=== PATIENT | female | born 1995 | race Caucasian/White ===

== ENCOUNTER 2017-12-10 05:30 | Day surgery (SDC) | payer MEDICAID ==
[2017-12-09 12:30] LABS: BASOPHILS 0.3 % (0-2); EOSINOPHILS 2.2 % (0-7); HEMATOCRIT 39.5 % (36.0-48.0); HEMOGLOBIN 13.6 g/dL (12-16); LYMPHOCYTES 36.6 % (15-50); MCH 31.7 pg (26.0-34.0); MCHC 34.4 g/dL (31.0-37.0); MCV 92.1 fL (80.0-100.0); MEAN PLATELET VOLUME 8.8 fL (7.4-10.4); MONOCYTES 5.9 % (2-11); RBC 4.29 10x6/uL (4.00-5.40); RDW 12.3 % (11.5-14.5); WBC 5.9 10x3/uL (4.8-10.8)
[2017-12-09 12:31] LABS: PLATELET COUNT 278 10x3/uL (130-400)
[~2017-12-10] VITALS: Ht 157.5 cm; Wt 43.5 kg
--- NOTE | ~2017-12-10 | OP ---
PATIENT NAME: NATALIE WHITEHEAD MEDICAL RECORD: [id number] :96 LOCATION:D.OPS ADMISSION DATE: SURGEON: JASVIR HEWITT MD DATE OF OPERATION: 12/10/2017 PREOPERATIVE DIAGNOSES: 1. Retracted IUD strings. 2. The patient desires IUD removal. POSTOPERATIVE DIAGNOSES: 1. Retracted IUD strings. 2. The patient desires IUD removal. PROCEDURE: Hysteroscopy and removal of IUD. SURGEON: Jasvir Hewitt MD ESTIMATED BLOOD LOSS: Minimal. INTRAVENOUS FLUIDS: Per anesthesia records. HYSTEROSCOPIC FLUID LOSS: Less than 100 cc of 0.9 normal saline. SPECIMENS: IUD. FINDINGS: 1. Grossly normal-appearing external genitalia. 2. Grossly normal-appearing cervix. 3. IUD within the fundus of grossly normal-appearing endometrial cavity. COMPLICATIONS: None apparent. ESTIMATED BLOOD LOSS: Minimal. PROCEDURE IN DETAIL: The patient was taken to the operating room where general anesthesia was achieved without difficulty. The patient was then prepped and draped in normal sterile fashion in the dorsal lithotomy position in the [facility]. After prepping and draping, the bladder was drained of approximately 50 cc of clear yellow urine. A Graves speculum was then placed in the vagina and the cervix was grasped on its anterior lip with a single tooth tenaculum. The 5 mm hysteroscope was then introduced into the cervix without resistance. It was very slowly advanced under direct visualization until the IUD was noted. The hysteroscopic grasper was then used to grasp the retrieval string of the IUD and the IUD and hysteroscope were removed. No bleeding was noted from the os at that time. The single-tooth tenaculum was then removed with good hemostasis noted from the tenaculum sites. The patient tolerated the procedure well and was transported to postanesthesia recovery stable without incident. TRANSINT:[id number] Voice Confirmation ID: [id number] DOCUMENT ID: [id number] OPERATIVE REPORT [id number] NATALIE WHITEHEAD JASVIR HEWITT MD at 1034 CC: [id number] DICTATION DATE: 12/18/17 0656 FISH CONSERVATIONIST: 12/18/17 0851 [facility] 12/10/17 [place] [address]
[~2017-12-10 05:30] MED LIST: IBUPROFEN600 MG PO; PERCOCET 5-3251 TAB PO
[2017-12-10 06:20] VITALS: BP 99/55; BMI 17.6
[2017-12-10 06:20] LABS: HCG URINE NEGATIVE (NEGATIVE)
[2017-12-10 06:38] VITALS: Ht 157.5 cm; Wt 43.5 kg
== END 2017-12-10 09:25 | disposition home or self-care (01) ==
LOC: D.OPS 05:30 → D.PAN 07:30 → D.OPS 09:25 → D.PAN 12:00 → D.OPS 12:00
PROVIDERS: Obstetrics & Gynecology
DX: T83.32XA Displacement of intrauterine contraceptive device, initial encounter (principal)

== ENCOUNTER → 2019-02-07 22:02 | Outpatient (CLI) | payer MEDICAID ==
[2017-12-10 06:38] VITALS: BMI 17.6
[~2019-02-07 22:02] MED LIST changes: +HYDROCODON-ACE1 EAC7 PO
== END | disposition home or self-care (01) ==
LOC: D.LDO 22:02
PROVIDERS: ATTEND Obstetrics & Gynecology
DX: O26.893 Other specified pregnancy related conditions, third trimester (principal); Z3A.38 38 weeks gestation of pregnancy

== ENCOUNTER 2019-02-09 03:20 | Inpatient (IN) | payer MEDICAID ==
[~2019-02-09] VITALS: Ht 157.5 cm; Wt 59.1 kg
[~2019-02-09 03:20] MED LIST changes: -HYDROCODON-ACE1 EAC7 PO
[2019-02-09 04:58] VITALS: BP 103/60; Ht 157.5 cm; Wt 59.1 kg
[2019-02-09 05:16] LABS: HEMATOCRIT 38.9 % (36.0-48.0); HEMOGLOBIN 13.7 g/dL (12-16); MCH 32.6 pg (26.0-34.0); MCHC 35.2 g/dL (31.0-37.0); MCV 92.6 fL (80.0-100.0); MEAN PLATELET VOLUME 9.4 fL (7.4-10.4); RBC 4.2 10x6/uL (4.00-5.40); RDW 12.6 % (11.5-14.5); WBC 7.1 10x3/uL (4.8-10.8)
[2019-02-09 19:20] VITALS: BP 99/63
--- NOTE | 2019-02-09 19:20 | NUR ---
PT. REPORTS THAT SHE NEEDS TO VOID. GOOD ROM OF LOWER EXTREMITIES AND PT. DID NOT HAVE EPIDURAL FOR DELIVERY. VITAL SIGNS OBTAINED. LOCHIA RUBRA SCANT TO MOD ON CURRENT PAD. SALINE LOCK NOTED IN RT. WRIST WITHOUT REDNESS NOR EDEMA. PT. UP TO VOID. GAIT STEADY. PT. STATES SHE FEELS HER BLADDER IS EMPTIED. SELF FOX CARE TAUGHT TO PT. PT. GAVE RETURN DEMONSTRATION ON USE OF FOX BOTTLE. GOWN CHANGED AND FOX PADS AND PANTIES APPLIED. PT. CHEERFUL. INFANT IN ROOM IN OPEN CRIB. DISCUSSED POC WITH PT. AND FOB.
--- NOTE | 2019-02-09 19:40 | NUR ---
TRANSFERRED TO [facility] VIA WHEELCHAIR. PT. AWAKE AND ORIENTED. TO ROOM IN OPEN CRIB. PT. ORIENTED TO ROOM , CALL SYSTEM, AND TEMP. CONTROL . PT. DESIRES ROOM WARMER AND TEMP. INCREASED REQUESTED. FUNDUS FIRM U/1 AND MIDLINE. LOCHIA RUBRA SCANT AT THIS TIME. SIDE RAILS UP X2. INQUIRED IF PT. DESIRED SOMETHING TO EAT AND CHOICES GIVEN TO PT. FOB ASSISTED TO PULL OUT SOFA SINCE HE IS SPENDING THE NIGHT.
--- NOTE | 2019-02-09 19:50 | NUR ---
SANDWICH TRAY, COLA DRINK, CHIPS AND COLA SERVED. PT. CHEERFUL.
--- NOTE | 2019-02-09 20:30 | NUR ---
MECHE BROUGHT FOOD FROM OUTSIDE.
--- NOTE | 2019-02-09 20:54 | NUR ---
FOB AND PT. LYING IN BED . DENIES ANY PAIN OR NEEDS AT THIS TIME. STATES SHE HAS VOIDED AGAIN. SIDE RAILS UP X2 AND CALL LIGHT WITHIN REACH.
--- NOTE | 2019-02-09 21:55 | NUR ---
LYING ON BACK WITH HOB AT 45 DEGREES HOLDING . FOB SITTING BESIDE BED AND PATTING ON BACK GENTLY. ICE WATER PROVIDED. DENIES ANY PAIN OR NEEDS.
--- NOTE | 2019-02-09 22:03 | NUR ---
BEDSIDE REPORT REC'D FROM Allyn PERRIN RN. PT REC'S IN HIGH FOWLERS POSITION WITH INFANT ARMS BONDING. DENIES NEEDS AND PAIN AT THIS TIME. BED IN LOW POSITION WITH UPPER SIDE RAILSL RAISED X2. CALL LIGHT AND PHONE WITHIN REACH. WILL CONTINUE TO MONITOR.
--- NOTE | 2019-02-09 22:12 | NUR ---
C/O ABD CRAMPING 5-01/02. NORCO AND MOTRIN GIVEN PER ORDER AND PT REQUEST. RESTING IN OPEN CRIB AT BEDSIDE. PT REPORTS THAT CRAMPING STARTED FOLLOWING LAYING INFANT DONE. EDUCATED ON MEDS, VERBALIZES UNDERSTANDING AND DENIES QUESTIONS. REINFORCED TEACHING TO CALL FOR ASSISTANCE IF FEELING DIZZY OR DROWSY FOLLOWING NORCO AND CALLING FOR ASSISTANCE WITH INFANT, VERBALIZES UNDERSTANDING AND DENIES QUESTIONS/NEEDS. BED IN LOW POSITION WITH UPPER SIDE RAILS RAISED X2. CALL LIGHT AND PHONE WITHIN REACH. SIGNIFICANT OTHER AT BEDSIDE, SUPPORTIVE AND ATTENTIVE TO PT AND INFANT NEEDS.
--- NOTE | 2019-02-09 22:59 | NUR ---
PAIN REASSESSMENT COMPLETED. 09/04. DENIES NEEDS AT THIS TIME. CONVERSING WITH VISITORS. BED IN LOW POSITION WITH UPPER SIDE RAILS RAISED X2. WILL CONTINUE TO MONITOR AND ASSIST PRN.
--- NOTE | 2019-02-10 00:29 | NUR ---
ROUNDS MADE. PT RESTING WITH EYES CLOSED IN SEMI FOWLERS POSITION, AWAKENS WHEN DOOR OPENS. FOB ATTEMPTING TO BOTTLE FEED , BUT EYES NOTED TO BE TO CLOSED. PT REPORTS THAT SHE IS "VERY SLEEPY SINCE TAKING THAT PAIN MEDICINE." TO NBN PER PT REQUEST. ICE AND ICE WATER PROVIDED. DENIES ADDITIONAL NEEDS. BED IN LOW POSITION WITH UPPER SIDE RAILS RAISED X2. CALL LIGHT AND PHONE WITHIN REACH. WILL CONTINUE TO MONITOR AND ASSIST PRN.
--- NOTE | 2019-02-10 02:07 | NUR ---
ROUNDS MAY, PT RESTING WITH EYES CLOSED LAYING ON LEFT SIDE. RESPIRATIONS REGULAR AND UNLABORED, NO S/S OF DISTRESS NOTED. SIGNIFICANT OTHER RESTING ON COUCH AT BEDSIDE. IN NBN. BED IN LOW POSITION WITH UPPER SIDE RAILS RAISED X2. CALL LIGHT AND PHONE WITHIN REACH. WILL CONTINUE TO MONITOR AND ASSIST PRN.
--- NOTE | 2019-02-10 04:07 | NUR ---
ROUNDS MADE. ICE WATER PROVIDED. REQUESTS INFANT BE BROUGHT TO ROOM FROM [facility]. BROUGHT TO ROOM PER REQUEST, ID BANDS MATCHED AND PLACED IN FOB ARMS. DENIES PAIN AND NEEDS AT THIS TIME. BED IN LOW POSITION WITH UPPER SIDE RAILS RAISED X2. CALL LIGHT AND PHONE WITHIN REACH. WILL CONTINUE TO MONITOR AND ASSIST PRN.
[2019-02-10 06:09] LABS: RAPID PLASMA REAGIN Non Reactive (Non Reactive)
--- NOTE | 2019-02-10 06:24 | NUR ---
ROUNDS MADE. PT CHANGING INFANTS DIAPER. DENIES PAIN AND NEEDS AT THIS TIME. BED IN LOW POSITION WITH UPPER SIDE RAILS RAISED X2. CALL LIGHT AND PHONE WITHIN REACH. WILL CONTINUE TO MONITOR AND ASSIST PRN. SIGNIFICANT OTHER REMAINS AT BEDSIDE, SUPPORTIVE AND ATTENTIVE TO PT AND HER NEEDS.
[2019-02-10 06:50] LABS: BASOPHILS 0.1 % (0-2); EOSINOPHILS 0.3 % (0-7); HEMATOCRIT 36.7 % (36.0-48.0); HEMOGLOBIN 12.6 g/dL (12-16); IMMATURE GRANULOCYTES 0.4 % (0-5); LYMPHOCYTES 16.3 % (15-50); MCH 32.1 pg (26.0-34.0); MCHC 34.3 g/dL (31.0-37.0); MCV 93.6 fL (80.0-100.0); MEAN PLATELET VOLUME 9.3 fL (7.4-10.4); MONOCYTES 6.4 % (2-11); NEUTROPHILS 76.5 % (40-80); PLATELET COUNT 204 10x3/uL (130-400); RBC 3.92 10x6/uL (4.00-5.40); RDW 12.6 % (11.5-14.5)
[2019-02-10 07:36] LABS: WBC 12.9 10x3/uL (4.8-10.8)
--- NOTE | 2019-02-10 08:15 | NUR ---
ASSESSMENT COMPLETED CHARTED ON EMAR. PT RATES PAIN AT 0/10, FUNDUS FIRM AT U/U AND SHE DENIES HEAVY BLEEDING, NO CLOTS WITH VOIDS. IN CRIB AT BEDSIDE. PT REQUEST BOTTLE FOR INFANT BUT WHEN QUESTIONED ABOUT LAST FEEDING STATES WAS AT 0630 THIS AM, EXPLAINED THAT WAS TO EARLY TO FEED BUT WOULD CONFIRM THAT WITH NURSERY NURSE AND SEND HER IN TO ANSWER ANY FURTHER QUESTIONS ABOUT FEEDING. SIDE RAILS UP X 2 WITH CALL LIGHT IN REACH.
--- NOTE | 2019-02-10 08:21 | NUR ---
INFANT SHIRT AND BLANKETS X 2 TAKEN PER PT REQUEST.
--- NOTE | 2019-02-10 10:30 | NUR ---
PT DENIES PAIN OR DISCOMFORT. INFANT IN CRIB AT BEDSIDE AND FAMILY/FRIENDS PRESENT. NO NEEDS AT THIS TIME.
--- NOTE | 2019-02-10 12:15 | NUR ---
CALLED TO ROOM WITH REQUEST FOR SALINE LOCK TO BE REMOVED. PT C/O "ITCHING" AT SITE. NO REDNESS NOTED. SALINE LOCK REMOVED INTACT FROM LEFT WRIST. TOWELS AND SHOWER ITEMS PLACED IN BATHROOM PT REQUESTED, WILL LET NURSE KNOW WHEN SHE SHOWERS SO THAT BED LINENS CAN BE CHANGED.
--- NOTE | 2019-02-10 12:45 | NUR ---
PT PROVIDED WITH ROOMIN POLICY AND INFO SHEET TO BE ABLE TO CHOICE IF SHE WISHES TO STAY IN PATIENT OR ROOM IN UNTIL INFANT DISCHARGE.
--- NOTE | 2019-02-10 14:15 | NUR ---
PT UP TO SHOWER, FOB AT BEDSIDE HOLDING . BED LINENS CHANGED WHILE PT SHOWERS. WILL CALL FOR NURSE IF ANY ASSISTANCE IS NEEDED.
--- NOTE | 2019-02-10 15:32 | NUR ---
CALLED TO ROOM, PT DECLINES ROOMING IN, STATES "HE SHOULD BE GOING HOME TOMORROW SO I WILL WAIT ALSO" REASSURED THAT WAS NO A PROBLEM. DENIES NEEDS AT THIS TIME AND CONTINUE TO RATE PAIN AT 0/10.
--- NOTE | 2019-02-10 17:27 | NUR ---
CALLED TO ROOM. RATES PAIN AT 4/10, MOTRIN GIVEN PER REQUEST SCANNED TO EMAR. LARGE ICE WATER ALSO PROVIDED. INFANT IN CRIB AT BEDSIDE, FAMILY MEMBERS ALSO PRESENT.
--- NOTE | 2019-02-10 18:17 | NUR ---
pain reassessment, pt rates at 0/10 and denies needs.
--- NOTE | 2019-02-10 19:05 | NUR ---
UNABLE TO GET TO COMPUTER DURING BEDSIDE REPORT DUE TO CRIB AND SOFA IN FRONT OF MONITOR. SIGN OFF DONE AT DESK. PT. SITTING ON SOFA WITH FEMALE WHICH IS HOLDING . PT'S CHILD SITTING BESIDE HER MOTHER. PT. DENIES ANY PAIN AND ICE WATER PROVIDED REQUESTED.
[2019-02-10 20:36] VITALS: BP 96/54
--- NOTE | 2019-02-10 20:36 | NUR ---
PT. SITTING ON SOFA WITH FEMALE WHICH IS HOLDING HER . PT'S 5 Y/O IN THE FLOOR PLAYING. PT. CHEERFUL. FUNDUS FIRM U/3 AND MIDLINE. BREATH SOUNDS CLEAR. NO LOWER EXTREMITY EDEMA NOTED. DENIES ANY PAIN OR NEEDS.
--- NOTE | 2019-02-10 21:36 | NUR ---
LYING IN BED ON RT SIDE. LYING BESIDE PT. DAUGHTER LYING ON SOFA WITH FEMALE VISITOR. LIGHTS IN ROOM DIMMED AND PT. STATES SHE IS GOING TO WATCH TV.
--- NOTE | 2019-02-10 23:04 | NUR ---
VISITORS IN ROOM. PT. DENIES PAIN OR ANY NEEDS.
--- NOTE | 2019-02-10 23:50 | NUR ---
PT. AND FOB TENDING TO INFANT AND REQUESTING NEW SHIRT AND BLANKET DUE TO SPIT-UP. DENIES ANY FURTHER NEEDS AND DENIES PAIN.
--- NOTE | 2019-02-11 01:35 | NUR ---
PT. IN NURSERY HELPING WITH 'S BATH. BACK TO ROOM WITH MOTHER POST BATH. PT'S GAIT STEADY. FOB IN ROOM .
--- NOTE | 2019-02-11 02:00 | NUR ---
CALLS VIA CALL LIGHT. REQUEST BE TAKEN BACK TO NBN. BACK TO NBN IN OPEN CRIB. ICE WATER PROVIDED PER PT REQUEST. DENIES ADDITIONAL NEEDS. BED IN LOW POSITION WITH UPPER SIDE RAILS RAISED X2. CALL LIGHT AND PHONE WITHIN REACH. WILL CONTINUE TO MONITOR AND ASSIST PRN.
--- NOTE | 2019-02-11 03:41 | NUR ---
LYING ON BACK WITH EYES CLOSED. FOB IN BED WITH PT.
--- NOTE | 2019-02-11 07:06 | NUR ---
ASSUMED CARE OF THIS PT. CURRENTLY SLEEPING, RESPIRATIONS EVEN. INFANT IN NURSERY. VISITOR SLEEPING ON COUCH. SIDE RAILS UP X 2, CALL LIGHT IN REACH. ANTICIPATE DC HOME THIS AFTERNOON. O+ RUBELLA NON-IMMUNE, GBS POSITIVE. BOTTLE FEEDING, POSSIBLE PLANS AFTER DC HOME. WILL COMPLETE SHIFT ASSESSMENT WHEN AWAKE/AFTER BREAKFAST.
--- NOTE | 2019-02-11 07:50 | NUR ---
AMBULATING IN ROOM. DENIES NEEDING ANYTHING, TO ROOM BY NURSERY RN. REGULAR BREAKFAST TRAY AT BEDSIDE. WILL COMPLETE SHIFT ASSESSMENT AFTER BREAKFAST.
[2019-02-11 08:50] VITALS: BP 96/55
--- NOTE | 2019-02-11 08:50 | NUR ---
SITTING UP IN BED HOLDING . SHIFT ASSESSMENT COMPLETED. DENIES PAIN OR NEEDING ANYTHING. NO CHANGE IN CARE PLAN NEEDED. ANTICIPATE DC HOME TODAY. VERBAL AND WRITTEN INFORMATION GIVEN ON MMR AND DTAP VACCINATIONS. NO RECORD OF VACCINATIONS IN [place] IMMUNIZATION RECORDS. TDAP NOT RECEIVED IN AND RUBELLA NON-IMMUNE PER RECORDS. PT TO LET RN KNOW IF SHE WOULD LIKE VACCINATIONS PRIOR TO DC. SIDE RAILS UP X 2, CALL LIGHT IN REACH. VISITOR AT BEDSIDE.
--- NOTE | 2019-02-11 10:38 | NUR ---
SITTING UP IN BED HOLDING AND TALKING TO NURSERY RN. DENIES NEEDING ANYTHING AT THIS TIME. TO CALL IF ANYTHING IS NEEDED.
--- NOTE | 2019-02-11 10:51 | NUR ---
REQUESTED ICE. DECLINED MMR AND TDAP STATES "I DON'T WANT TO GET THEM". INFORMED THAT IT IS HIGHLY RECOMMENDED AND IF SHE CHANGES HER MIND SHE CAN GET THEM AT THE HEALTH DEPARTMENT OR AT HER PHYSICIANS OFFICE. VERBALIZED UNDERSTANDING. FOB AND INFANT IN ROOM. NO ADDITIONAL REQUESTS.
--- NOTE | 2019-02-11 12:37 | NUR ---
SITTING UP IN BED HOLDING AND WATCHING TV. FOB ON COUCH. DENIES NEEDING ANYTHING AT THIS TIME. WAITING ON DC HOME. TO CALL IF ANYTHING IS NEEDED.
--- NOTE | 2019-02-11 14:03 | NUR ---
LAYING ON RIGHT SIDE IN BED RESTING. LIGHTS ON LOW. FOB ON COUCH WITH . DENIES NEEDING ANYTHING. NO C/O PAIN. TO CALL IF ANYTHING IS NEEDED. SIDE RAILS UP X 2, CALL LIGHT IN REACH.
[2019-02-11] MEDS ORDERED: HYDROCODON-ACE1 EAC7 PO (15:09)
[2019-02-11] MEDS ORDERED: IBUPROFEN600 MG PO (15:10)
--- NOTE | 2019-02-11 15:41 | NUR ---
DR AVALOS ON L&D. VISITED PATIENT. T.O. RECEIVED FROM PRIOR TO ARRIVAL TO L&D. HAS BEED DC'D. VERBAL AND WRITTEN DC INSTRUCTIONS REVIEWED WITH PT TO INCLUDE ROUTINE PP CARE, PP DEPRESSION, S&S INFECTION, DANGER SIGNS, BREAST/BOTTLE FEEDING, BREASTCARE, MEDICATION ADMINISTRATION AND FOLLOW-UP. PRESCRIPTIONS AND WRITTEN INSTRUCTIONS GIVEN TO PATIENT. WILL DC TO CAR VIA WHEELCHAIR WHEN READY.
--- NOTE | 2019-02-11 15:50 | NUR ---
DC'D VIA WHEELCHAIR WITH IN CARSEAT, FOB DRIVING, ALL BELONGINGS REMOVED FROM ROOM. HAS DC INSTRUCTIONS AND PRESCRIPTIONS.
== END 2019-02-11 15:50 | disposition home or self-care (01) | DRG 807 ==
LOC: D.LDO 03:20 → D.LD 03:45
PROVIDERS: ADMIT Obstetrics & Gynecology; ATTEND Obstetrics & Gynecology
PROC: 10D07Z6 Extraction of Products of Conception, Vacuum, Via Natural or Artificial Opening (ICD-10-PCS; principal; 2019-02-09)
DX: O99.824 Streptococcus B carrier state complicating childbirth (principal); Z37.0 Single live birth; Z3A.38 38 weeks gestation of pregnancy; O70.0 First degree perineal laceration during delivery; O76 Abnormality in fetal heart rate and rhythm complicating labor and delivery